=== PATIENT | female | born 1975 ===

== ENCOUNTER → 2019-05-23 08:44 | Outpatient (CLI) | payer OTHER | END | disposition home or self-care (01) | LOC: LAB 08:44 | DX: Z34.81 Encounter for supervision of other normal pregnancy, first trimester (principal) ==

== ENCOUNTER 2019-08-31 14:04 | Outpatient (CLI) | payer OTHER | END 2019-08-31 17:32 | disposition home or self-care (01) | LOC: NST 14:04 | DX: Z34.83 Encounter for supervision of other normal pregnancy, third trimester (principal) ==

== ENCOUNTER 2019-11-25 14:00 | Inpatient (IN) | payer OTHER ==
[~2019-11-25] VITALS: Ht 167.6 cm; Wt 96.6 kg
[2019-12-13] MEDS ORDERED: PRENATAL + DHA1 EAC1 PO (04:30)
[2019-12-13] MEDS ORDERED: IRON18 MG PO (04:35)
== END 2019-12-15 13:09 | disposition home or self-care (01) | DRG 807 ==
LOC: OB/GYN 14:00 → LDR 12-13 04:23 → SURG-SUITE 12-13 09:30 → LDR 12-24 14:00
PROVIDERS: ADMIT Obstetrics & Gynecology
PROC: 10E0XZZ Delivery of Products of Conception, External Approach (ICD-10-PCS; principal; 2019-12-13)
PROC: 4A1HXFZ Monitoring of Products of Conception, Cardiac Rhythm, External Approach (ICD-10-PCS; 2019-12-13)
PROC: 3E033VJ Introduction of Other Hormone into Peripheral Vein, Percutaneous Approach (ICD-10-PCS; 2019-12-13)
DX: O13.4 Gestational [pregnancy-induced] hypertension without significant proteinuria, complicating childbirth (principal); Z37.0 Single live birth; Z3A.38 38 weeks gestation of pregnancy

== ENCOUNTER 2019-12-13 03:00 | Outpatient (CLI) | payer OTHER ==
[2019-12-13] MEDS ORDERED: PRENATAL + DHA1 EAC1 PO (04:30)
[2019-12-13] MEDS ORDERED: IRON18 MG PO (04:35)
== END 2019-12-13 04:26 | disposition still patient (30) ==
LOC: OBS/DEL 03:00
DX: O47.1 False labor at or after 37 completed weeks of gestation (principal)

== ENCOUNTER 2023-02-13 13:40 | Day surgery (SDC) | payer OTHER ==
[~2023-02-13 13:40] MED LIST: IRON18 MG PO; PRENATAL + DHA1 EAC1 PO
== END 2023-02-14 00:30 | disposition home or self-care (01) ==
LOC: CIR.AMB 13:40
PROVIDERS: ATTEND Obstetrics & Gynecology
DX: N87.9 Dysplasia of cervix uteri, unspecified (principal); N72 Inflammatory disease of cervix uteri; N88.8 Other specified noninflammatory disorders of cervix uteri; D49.59 Neoplasm of unspecified behavior of other genitourinary organ; N84.0 Polyp of corpus uteri; D25.9 Leiomyoma of uterus, unspecified; Z20.822 Contact with and (suspected) exposure to COVID-19; Z88.6 Allergy status to analgesic agent